=== PATIENT | female | born 1995 | race Caucasian/White ===

== ENCOUNTER 2022-11-10 08:41 | Outpatient (CLI) | payer BC, SELFPAY ==
--- NOTE | 2022-11-10 08:45 | CRLHL7_ITS ---
For Patients: As a result of the Cures Act, medical imaging exams and procedure reports are released immediately into your electronic medical record. You may view this report before your referring provider. If you have questions, please contact your health care provider. INDICATION: First trimester scan, establish dates. COMPARISON: None. TECHNIQUE: Real-time whatley-scale imaging of the pelvis was performed. FINDINGS: Sonographic imaging demonstrates a single living intrauterine gestation. The embryo demonstrates a regular cardiac rate measuring 166 beats per minute. The embryo`s crown-rump length measurement of 1.8 cm corresponds to a gestational age of 8 weeks 2 days with a sonographic due date of 06/20/2023. There is a normal-appearing yolk sac. There are no gross abnormalities noted within the embryo at this early state of development. The gestational sac has a normal appearance. There is a 1.4 x 1.1 x 1.1 cm perigestational hemorrhage. The amount of fluid within the sac appears appropriate for gestational age. The cervix is closed. The myometrium appears normal. The ovaries are of normal size. Corpus luteal cyst right ovary. There are no suspicious fluid collections noted in the cul-de-sac. IMPRESSION: Single living intrauterine with sonographic gestational age 8 weeks 2 days and sonographic due date 06/20/2023. Left-sided subchorionic hemorrhage measuring 1.4 x 1.1 x 1.1 cm. Dictated by Kemar Villegas MD @ 11/10/2022 9:51:42 AM (Electronically Signed)
== END 2022-11-10 08:42 | disposition home or self-care (01) ==
PROVIDERS: Visit Provider Advanced Practice Midwife
DX: Z34.91 Encounter for supervision of normal pregnancy, unspecified, first trimester (principal); O20.9 Hemorrhage in early pregnancy, unspecified; Z3A.08 8 weeks gestation of pregnancy
CPT/HCPCS: 0353U; 76817; 86703; 86803; 86850; 86900; 86901; 87340; 87491; 87591

== ENCOUNTER 2022-11-10 10:49 | Outpatient (CLI) | payer BC, SELFPAY ==
[2022-11-10 19:10] LABS: Chlamydia DNA Amplified* NOT DETECTED (No Detected); GC DNA Amplified* NOT DETECTED (No Detected)
== END 2022-11-10 10:50 | disposition home or self-care (01) ==
PROVIDERS: Visit Provider Advanced Practice Midwife
DX: Z34.81 Encounter for supervision of other normal pregnancy, first trimester (principal); Z3A.08 8 weeks gestation of pregnancy
CPT/HCPCS: 0353U; 86592; 86703; 86762; 86787; 86803; 86850; 86900; 86901; 87086; 87340

== ENCOUNTER 2023-02-02 08:07 | Outpatient (CLI) | payer BC, SELFPAY ==
--- NOTE | 2023-02-02 08:15 | CRLHL7_ITS ---
For Patients: As a result of the Century Cures Act, medical imaging exams and procedure reports are released immediately into your electronic medical record. You may view this report before your referring provider. If you have questions, please contact your health care provider. INDICATION: Evaluate anatomy. COMPARISON: 11/10/2022 TECHNIQUE: Real time whatley scale imaging of the fetus was performed as well as color Doppler analysis of the umbilical vessels. FINDINGS: Sonographic imaging demonstrates a single living intrauterine gestation. Fetus demonstrates a regular cardiac rate of 159 beats per minute. Fetus has a breech position. The placenta lies posterior without evidence of placenta previa. The edge of the placenta is located 7.5 cm from the internal cervical os. Amniotic fluid volume appears normal. Single deepest vertical pocket: 5.4 cm. The cervix is closed and measures 4.3 cm in length. The composite ultrasound gestational age is calculated at 20 weeks 1 day with an estimated sonographic due date of 06/21/2023. The estimated weight is 365 grams which lies at the 72nd %. The following biometric measurements were obtained: Biparietal diameter: 4.4 cm/19 weeks 3 days 21st% Head circumference: 17.3 cm/19 weeks 6 days 27th% Abdominal circumference: 16.4 cm/21 weeks 3 days 83rd% Femur length: 3.2 cm/19 weeks 6 days 35th% The HC/AC ratio measures: 1.05 range (1.07-1.25) On anatomic survey, there is a normal appearance of the cerebral ventricles, cavum septi pellucidi, cisterna magna and cerebellum. The nose, lips, and facial profile appear normal. The cervical, thoracic and lumbar spine are well visualized and appear normal. There is a normal four-chamber heart view and the left and right ventricular outflow tracts appear normal. The diaphragm and stomach appear normal. The bladder is normal. Bilateral pelviectasis measuring 4.3 millimeters the left and 4.5 millimeters on the right. There is a normal three-vessel cord and cord insertion site. The four extremities appear normal. IMPRESSION: Concordance of clinical and sonographic dating. Mild bilateral renal pelviectasis measuring just over 4 millimeters bilaterally. Follow-up in the 3rd trimester recommended. Remainder of the anatomic survey normal. Dictated by Kemar Villegas MD @ 02/02/2023 10:11:14 AM (Electronically Signed)
== END 2023-02-02 08:08 | disposition home or self-care (01) ==
LOC: US 08:07
PROVIDERS: Visit Provider Advanced Practice Midwife
DX: Z34.92 Encounter for supervision of normal pregnancy, unspecified, second trimester (principal); Z3A.20 20 weeks gestation of pregnancy
CPT/HCPCS: 76805

== ENCOUNTER 2023-03-31 09:35 | Outpatient (CLI) | payer BC, SELFPAY | END 2023-03-31 09:36 | disposition home or self-care (01) | LOC: NFLDREF 09:36 | PROVIDERS: Visit Provider Advanced Practice Midwife | DX: Z34.93 Encounter for supervision of normal pregnancy, unspecified, third trimester (principal); Z3A.30 30 weeks gestation of pregnancy | CPT/HCPCS: 86592; 86850; J2791 ==

== ENCOUNTER 2023-04-28 08:05 | Outpatient (CLI) | payer BC, SELFPAY ==
--- NOTE | 2023-04-28 08:15 | CRLHL7_ITS ---
For Patients: As a result of the Century Cures Act, medical imaging exams and procedure reports are released immediately into your electronic medical record. You may view this report before your referring provider. If you have questions, please contact your health care provider. INDICATION: HX IUGR, GROWTH, RE-EVALUATE KIDNEYS COMPARISON: 02/02/2023 TECHNIQUE: Real time whatley scale imaging of the fetus was performed. FINDINGS: Sonographic imaging demonstrates a single living intrauterine gestation. Fetus demonstrates a regular cardiac rate of 144 beats per minute. Fetus has a vertex position. The placenta lies posteriorly. Amniotic fluid volume appears normal and there is a single deepest vertical pocket: 5.9 cm. The estimated weight is 2237gm which lies at the 81st %. On the prior OB ultrasound exam dated 02/02/2023 the estimated weight was at the 72nd%. BPD 42nd percentile. HC 73rd percentile. AC greater than 97th percentile. FL 18th percentile. The HC/AC ratio measures 1.00 range (0.96-1.11). Right renal pelvis measures 3.8 millimeters. Left renal pelvis measures 4.9 millimeters. IMPRESSION: Sonographic gestational age 33 weeks 2 days and sonographic due date of 06/14/2023. Sonographic age 1 week ahead of the clinical age. Estimated weight 81st percentile. Abdominal circumference greater than 97th percentile. Mild bilateral renal pelviectasis considered within normal limits. Dictated by Kemar Villegas MD @ 04/28/2023 9:43:23 AM (Electronically Signed)
== END 2023-04-28 08:06 | disposition home or self-care (01) ==
LOC: US 08:05
PROVIDERS: Visit Provider Advanced Practice Midwife
DX: O36.63X0 Maternal care for excessive fetal growth, third trimester, not applicable or unspecified (principal); Z87.59 Personal history of other complications of pregnancy, childbirth and the puerperium; Z3A.33 33 weeks gestation of pregnancy
CPT/HCPCS: 76816

== ENCOUNTER 2023-05-25 08:37 | Outpatient (CLI) | payer BC, SELFPAY ==
[2023-05-27 12:29] LABS: Strep B DNA Probe Negative (Negative); Strep B Susceptibility Needed? No
== END 2023-05-25 08:38 | disposition home or self-care (01) ==
LOC: NFLDREF 08:38
PROVIDERS: Visit Provider Advanced Practice Midwife
DX: Z34.93 Encounter for supervision of normal pregnancy, unspecified, third trimester (principal)
CPT/HCPCS: 87081; 87653

== ENCOUNTER 2023-06-22 02:13 | Inpatient (IN) | payer BC, SELFPAY ==
[2023-06-22] VITALS (74 sets, daily range): BP systolic 97–169; BP diastolic 47–90; PULSE 67–126; RESP 16–18; TEMP 36.4–37.5; O2SAT 96–100; BMI 31.4
--- NOTE | 2023-06-22 02:18 | PC.NURSE ---
Center telephone call greater than 37 weeks Date of call: [06/22/23] Time of call: [0106] Name of person calling: [Hayley Collins] Best phone # to reach you at: [] patient: G: [2] P: [1] EDC: [06/21/23] Gestational age: [40.1] weeks Provider: [[facility]] Reason for calling (patient's words): [I'm wondering if I should come into the Center. My contractions are about 5 min apart and lasting maybe 1 min at a time. I felt some fluid leaking but my last baby they broke my water so I am not sure if this is what it's like when it breaks by itself. There hasn't been much fluid leaking now and no bloody show or anything.] If patient is calling with the following complaints, instructed to come to Center for evaluation: Feels like water broke: [Yes] Regular contractions that are 5 min apart: [Yes] Bleeding that is bright red and similar to a menstrual period: [No] Decreased movement: [No] Temp >100.4: [No] Patient has a sense that something doesn't feel right: [No] Is patient having contractions: [Yes] Reviewed Signs of Labor: Uterine tightening or cramping that occurs at regular intervals. These typically occur at shorter and shorter intervals and may increase in intensity with time. Unlike Payne-Collins contractions, changes in activity should not make these symptoms go away. With true labor, the time between contractions will gradually shorten and the intensity gradually increases. Typical recommendation is coming to the hospital when contractions occur every 5 minutes or less and last for 60 seconds or more for 1 hour. If patient chooses to stay home, patient given comfort instructions and informed if symptoms stay the same or are worse after 1 hour come to Center. Comfort measures: Lie on left side, reset, drink bottle or large cup of water, monitor contractions for 1 hour. Patient verbalized understanding?: [Yes] Is patient coming for evaluation?: [Yes] Telephone conversation guided by approved policy and flow chart, Telephone Calls From Patient's, approved at [place] perinatology Committee March 2023.
--- NOTE | 2023-06-22 02:27 | P.LDBA_ITS ---
Subjective History of Present Illness Date Seen: 06/22/23 Narrative: Hayley is being admitted to Labor and Delivery for grossly ruptured membranes with clear fluid. She is a 28 year old at 40.1 weeks gestation. Her contractions began around midnight and she noted SROM at 0100. On admission she is adeola regularly and requesting an epidural for pain. Her full history and physical was dictated by Dominick Montenegro CNM on 06/01/23. Please see this for details. Specific Issues/Plans Rh Negative Partner:Jorgemaryam H & P done 06/01/23 by Dominick Montenegro IOL scheduled 06/30 1. Hx of IUGR -growth u/s at 32 weeks - EFW 81%. 4 lb 15 oz 2. Dilated renal pelvises noted on anatomy scan Follow-up US in 3rd trimester: Rt 4mm, L 5mm, Under 7 mm WNL COVID: declines Flu: 04/28/23 Tdap: Given 04/12/23 32wk Mental Health: 04/28/2023 34wk Hgb: OB - Problem Based A/P Additional Plan (1) 40 weeks gestation of : Status: Acute (2) SROM (spontaneous rupture of membranes): Status: Acute (3) Pain during labor: Status: Acute Plan Assessment:?? at 40.1 weeks gestation?? GBS negative? Patient is coping well with challenges of labor.?? Labor type: Spontaneous, Active/Early labor? Category 2 FHR pattern.? 2 elevated BP's after epidural placement, resolved with readjustment of BP cuff. complicated by: Hx IUGR, Dilated renal pelvises noted on anatomy scan ? Plan:?? * ?Admit to L & D? * IV access: placed per protocol with epidural * Monitoring per policy: continuous with epidural? * Candidate for analgesia of choice.? Planning epidural for pain management * Expectant management at this time * Patient encouraged to reposition to promote physiologic labor and . * Close monitoring of BP's, PreE labs if another elevation of BP obtained. * Anticipate ? Delivery/Labor/Induction Plan Plan: expectant management OB Exam Physical Exam Vital signs: Pulse BP 104 H 137/90 H 06/22/23 02:17 06/22/23 02:17 Narrative: Vitals Reviewed Constitutional:? Alert and oriented x3 HEENT:? Normocephalic, atraumatic Neck:? Supple Lungs:? Clear to auscultation bilaterally Heart:? Regular rate and rhythm, no murmur, rub or gallop Abdomen:? Soft, nontender, and gravid. Vertex by John Paul's, confirmed with cervical exam. Extremities:? No edema or erythema Cervix: 5 cm/90%/-2 station/vertex NST: 135 bpm/moderate variability/+accelerations/variable decelerations/1-2 min contractions Detailed Labor and Delivery Exam Patient Gravid: Yes Dilation (cm): 5 Effacement (%): 90 Cervix position: mid Consistency: soft Contraction Frequency: 1-2 Contraction duration (sec): 60 Contraction intensity: Moderate Fetus (Single) Station: -2 Amniotic Membrane Status: SROM Amniotic Membrane Fluid Description: Clear Heart Rate Baseline: 135 Monitor Accelerations: Absent Monitor Decelerations: Variable Shelter Variability: Moderate (6-25)
[2023-06-22] MEDS: LACTATED RINGERS 1000 ML 1,000 ML 500 ML IV ×2 (02:38→04:18)
[2023-06-22 02:53] LABS: Basophils Absolute Auto 0.01 K/uL (0.00-0.30); Basophils Percent Auto 0.1 % (0.0-3.0); Eosinophils Absolute Auto 0.05 K/uL (0.00-0.50); Eosinophils Percent Auto 0.5 % (0.0-7.0); Hematocrit 41.8 % (33.0-51.0); Hemoglobin* 14.5 gm/dL (12.0-16.0); Immature Granulocytes Abs Auto 0.09 K/uL (0.00-0.30); Immature Granulocytes Pct Auto 0.9 %; Lymphocytes Absolute Auto 2.01 K/uL (0.90-2.90); Lymphocytes Percent Auto 20.1 % (20-44); Mean Corpuscular HGB Conc 35 gm/dL (32-36); Mean Corpuscular Hemoglobin 30 pg (26-34); Mean Corpuscular Volume 87 fL (80-100); Monocytes Percent Auto 8.9 % (0.0-11.0); Neutrophils Absolute Auto 6.94 K/uL (1.7-7.0); Neutrophils Percent Auto 69.5 % (42.0-72.0); Platelet Count* 205 K/uL (140-440); Red Blood Count 4.79 m/uL (4.00-5.20); White Blood Count* 9.99 K/uL (4.50-11.00)
[2023-06-22 03:08] LABS: Slide Review Reflex No
[2023-06-22] MEDS: LIDOCAINE 2% (PF) 5 ML VIAL EPIDURAL ×2 (03:19→04:44)
[2023-06-22] MEDS: ROPIVACAINE 0.2% 100 ml 100 ML 12 MG EPIDURAL (03:22)
--- NOTE | 2023-06-22 03:28 | P.ANBPRC_ITS ---
[facility] Medical History History of prior with IUGR ?Z87.59 - Personal history of other complications of , childbirth and the puerperium (ICD-10) Surgical History History of wisdom tooth extraction ?K08.409 - Partial loss of teeth, unspecified cause, unspecified class (ICD- 10) Vaginal delivery (01/28/21) ?O80 - Encounter for full-term uncomplicated delivery (ICD-10) Family History (Updated 11/10/22 @ 10:23 by Elba Montenegro CNM) Father Diabetes Paternal Grandfather Stroke Social History (Updated 06/01/23 @ 10:09 by Elba Montenegro CNM) Narrative: SOCIAL Education: bachelors 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 Safe at home with current partner Special Diet: Denies Ok with a blood transfusion: yes Culture or hinduism beliefs: denies RISK FACTORS Exercise Times/wk: daily, weight lifting, Kimo, walking. Depression/Anxiety: denies Previous Treatments NA Therapy NA TISH: 0 PHQ 9: 0 Seat Belt Use: Routinely Smoking: Denies present. Smoked 1-2 years, and a few months between the pregnancies. Few times a week. Alcohol/day: Prior to knowing she was Caffeine: 200 mg a day Drug Use: Denies past/present What is your current living situation?: I presently have a place to live Problems where you live: no known problems In the past 12 months, utilities in danger of being shut off: no In past 12 months, lack of transportation kept you from medical appts, meetings, work, or getting things needed for daily living: no In the past 12 mos, have been you worried that your food would run out before you had money to buy more?: never true In the past 12 mos, the food you bought just didn't last and you didn't have money to buy more?: never true Smoking Status: Former smoker How often does anyone, including family, friends and others, physically hurt you : never How often does anyone, including family, friends and others, insult or talk down to you: never How often does anyone, including family, friends and others, threaten you with harm: never How often does anyone, including family, friends and others, scream or curse at you: never Little interest or pleasure in doing things: not at all Feeling down, depressed, or hopeless: not at all Meds Home Medications and Allergies Home Medications Medication Instructions Recorded Confirmed Type prenat.vits,mikayla,rnh-pops-igpxw 1 tab PO QDAY 11/10/22 06/22/23 History cholecalciferol (vitamin D3) 50 50 mcg PO QDAY 01/04/23 06/22/23 History mcg (2,000 unit) capsule calcium carbonate 600 mg calcium 600 mg PO QDAY 03/02/23 06/22/23 History (1,500 mg) tablet (Calcium) magnesium 250 mg tablet 250 mg PO QDAY 06/08/23 06/22/23 History Allergies Allergy/AdvReac Type Severity Reaction Status Date / Time No Known Drug Allergies Allergy Verified 06/22/23 02:21 Results Labs Labs: Laboratory Results - last 24 hr 06/22/23 02:30 WBC 9.99 RBC 4.79 Hgb 14.5 Hct 41.8 MCV 87 MCH 30 MCHC 35 RDW Coeff of Juan C 12.0 Plt Count 205 Neut % (Auto) 69.5 Lymph % (Auto) 20.1 [place] % (Auto) 8.9 Eos % (Auto) 0.5 Baso % (Auto) 0.1 Neut # (Auto) 6.94 Lymph # (Auto) 2.01 [place] # (Auto) 0.90 Eos # (Auto) 0.05 Baso # (Auto) 0.01 Abs Immat Gran (auto) 0.09 Imm/Tot Granulo (auto) 0.9 Vital Signs Vital Signs: Last Vital Signs Temp 98.4 F 06/22/23 02:19 Pulse 86 06/22/23 03:27 Resp 18 06/22/23 02:19 BP 128/72 06/22/23 03:27 Pulse Ox 100 06/22/23 03:18 Weight: 85.502 kg Height: 165.1 cm Anesthesia Procedures Epidural Insertion Patient Location: OB Start Time: 02:57 Stop Time: 03:36 Start Date: 06/22/23 Stop Date: 06/22/23 Reason for Block: primary anesthetic Patient Position: sitting Performed By: Price Petty Preanesthetic Checklist: IV checked, risks and benefits discussed, surgical consent, monitors and equipment checked, pre-op evaluation, timeout performed and anesthesia consent Prep: chlorhexidine gluconate Monitoring: blood pressure monitoring, senior formulation scientist, continuous pulse oximetry and heart rate Approach: midline Vertebral Space: lumbar (1-5) Needle Type: Tuohy needle Injection Technique: continuous catheter (catheter) Needle gauge: 17 Needle Length (cm): 10 cm Needle Insertion Depth (cm): 5 Catheter Gauge: 19 Catheter Type: multi-orifice Catheter at skin depth (cm): 10 Test Dose Result: negative and lidocaine 1.5% with epinephrine 1 to 200,000
--- NOTE | 2023-06-22 04:28 | P.OBPN_ITS ---
Subjective Date Seen: 06/22/23 Narrative: ?Everton is coping well with labor pain/contractions. She continues to have pain with frequent contractions. Anesthesia has been called to bolus epidural. ?She would like to continue with epidural for comfort and pain management.? Objective Exam: VSS, afebrile General Appearance:? Calm, cooperative. ?No acute distress. ? Psychiatric Exam: Alert and oriented, appropriate affect Abdomen: Gravid Ctx: ?Q 1-2 min apart. ? ? ?Strong- FHTs: ?Baseline: 130. ? ? Variability: moderate. ?Accels: +. ? ?Decels: ?variables. SVE: 8/100/0 Membranes: ?SROM X 3.5 hours Vital Signs: Last Vital Signs Temp 98.7 F 06/22/23 03:24 Pulse 105 H 06/22/23 04:24 Resp 18 06/22/23 03:24 BP 118/64 06/22/23 04:24 Pulse Ox 99 06/22/23 04:26 Pelvic Exam Dilation (cm): 8 Effacement (%): 100 Contractions Monitor mode: External Contraction Frequency: 1-2 Contraction pattern: Regular Contraction intensity: Strong/Firm Assessment Assessment: active labor Station: -2 Status: Category ll Heart Rate Baseline: 130 Mcc Variability: Moderate (6-25) Monitor Accelerations: Absent Monitor Decelerations: Variable Plan Plan: Assessment:?? at 40.1 gestation?? GBS neg Patient is coping well with challenges of labor.?? Labor type: Spontaneous, Active labor? complicated by: Hx IUGR, Dilated renal pelvises noted on anatomy scan ? Labor complicated by: Frequent contractions Plan:?? * IV access: placed per protocol with epidural * Monitoring per policy: continuous with epidural? * Candidate for analgesia of choice.? Epidural placed for pain management * Expectant management at this time * Patient encouraged to reposition to promote physiologic labor and . * Close monitoring of BP's, PreE labs if another elevation of BP obtained. * Anticipate ? ?
[2023-06-22] MEDS: fentaNYL 100 MCG/2 ML inj 25 MCG INTRATHECA (05:04)
--- NOTE | 2023-06-22 05:10 | P.ANBPRC_ITS ---
[facility] Medical History History of prior with IUGR ?Z87.59 - Personal history of other complications of , childbirth and the puerperium (ICD-10) Surgical History History of wisdom tooth extraction ?K08.409 - Partial loss of teeth, unspecified cause, unspecified class (ICD- 10) Vaginal delivery (01/28/21) ?O80 - Encounter for full-term uncomplicated delivery (ICD-10) Family History (Updated 11/10/22 @ 10:23 by Elba Montenegro CNM) Father Diabetes Paternal Grandfather Stroke Social History (Updated 06/01/23 @ 10:09 by Elba Montenegro CNM) Narrative: SOCIAL Education: bachelors 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 Owns [employer] company Lives with: Alice Purvis (daughter) Pets: denies Abuse: Denies past. Safe at home with current partner Special Diet: Denies Ok with a blood transfusion: yes Culture or amish beliefs: denies RISK FACTORS Exercise Times/wk: daily, weight lifting, Kimo, walking. Depression/Anxiety: denies Previous Treatments NA Therapy NA TISH: 0 PHQ 9: 0 Seat Belt Use: Routinely Smoking: Denies present. Smoked 1-2 years, and a few months between the pregnancies. Few times a week. Alcohol/day: Prior to knowing she was Caffeine: 200 mg a day Drug Use: Denies past/present What is your current living situation?: I presently have a place to live Problems where you live: no known problems In the past 12 months, utilities in danger of being shut off: no In past 12 months, lack of transportation kept you from medical appts, meetings, work, or getting things needed for daily living: no In the past 12 mos, have been you worried that your food would run out before you had money to buy more?: never true In the past 12 mos, the food you bought just didn't last and you didn't have money to buy more?: never true Smoking Status: Former smoker How often does anyone, including family, friends and others, physically hurt you : never How often does anyone, including family, friends and others, insult or talk down to you: never How often does anyone, including family, friends and others, threaten you with harm: never How often does anyone, including family, friends and others, scream or curse at you: never Little interest or pleasure in doing things: not at all Feeling down, depressed, or hopeless: not at all Meds Home Medications and Allergies Home Medications Medication Instructions Recorded Confirmed Type prenat.vits,mikayla,rcu-gudh-gglmp 1 tab PO QDAY 11/10/22 06/22/23 History cholecalciferol (vitamin D3) 50 50 mcg PO QDAY 01/04/23 06/22/23 History mcg (2,000 unit) capsule calcium carbonate 600 mg calcium 600 mg PO QDAY 03/02/23 06/22/23 History (1,500 mg) tablet (Calcium) magnesium 250 mg tablet 250 mg PO QDAY 06/08/23 06/22/23 History Allergies Allergy/AdvReac Type Severity Reaction Status Date / Time No Known Drug Allergies Allergy Verified 06/22/23 02:21 Results Labs Labs: Laboratory Results - last 24 hr 06/22/23 02:30 WBC 9.99 RBC 4.79 Hgb 14.5 Hct 41.8 MCV 87 MCH 30 MCHC 35 RDW Coeff of Juan C 12.0 Plt Count 205 Neut % (Auto) 69.5 Lymph % (Auto) 20.1 [place] % (Auto) 8.9 Eos % (Auto) 0.5 Baso % (Auto) 0.1 Neut # (Auto) 6.94 Lymph # (Auto) 2.01 [place] # (Auto) 0.90 Eos # (Auto) 0.05 Baso # (Auto) 0.01 Abs Immat Gran (auto) 0.09 Imm/Tot Granulo (auto) 0.9 Blood Type O Negative Antibody Screen NEGATIVE Vital Signs Vital Signs: Last Vital Signs Temp 98.7 F 06/22/23 03:24 Pulse 67 06/22/23 05:09 Resp 18 06/22/23 03:24 BP 97/47 L 06/22/23 05:09 Pulse Ox 97 06/22/23 05:02 Weight: 85.502 kg Height: 165.1 cm Anesthesia Procedures Intrathecal Patient Location: OB Start Time: 04:55 Stop Time: 05:15 Start Date: 06/22/23 Stop Date: 06/22/23 Reason for Block: procedure for pain Patient Position: sitting Performed By: Price Petty Preanesthetic Checklist: IV checked, risks and benefits discussed, monitors and equipment checked, timeout performed and anesthesia consent Prep: patient draped Monitoring: blood pressure monitoring, continuous pulse oximetry and heart rate Approach: midline Vertebral Space: lumbar (1-5) Needle Type: Ady Injection Technique: single-shot Needle gauge: 25 Needle Length (cm): 10 cm
[2023-06-22] MEDS: miSOPROStoL 800 MCG/4 TABLET PR (05:49)
--- NOTE | 2023-06-22 06:20 | W.PM.VAGDE_ITS ---
OB Procedure Vag Delivery Mother Details Mother Details: The patient is a 28 year-old, 2, Para 1, admitted on 06/22/23 at 40.1 Days gestation for SROM of clear fluid at 0000. : 2 Para: 2 Weeks Gestation: 40.1 Admission Date: 06/22/23 Additional Details Amniotic Membrane Status: SROM Amniotic Membrane Rupture Date: 06/22/23 Amniotic Membrane Rupture Time: 00:00 Amniotic Membrane Fluid Description: Clear Analgesia/Anesthesia Type: Epidural and Intrathecal Waterbirth: No Pitcoin: Yes (for AMTSL) Intrapartal Events: None Labor Onset: 00:00 Complete: 05:11 Pushin:15 Heart: heart tones during second stage were Catergory II, FHR 150's with va riablesto 80-90's, moderate variability between contractions. Delivery Details Delivery Date: 06/22/23 Delivery Time: 05:37 Route of delivery: Infant Gender: Male Infant Viability: Alive; Heart Rate Present Position at Delivery: OA Delivery Details: 28?y.o?at 40.1 weeks.? Hayley has SROM for clear fluid at 0000 shortly after began to contract and arrived with painful frequent contractions at 5cm/100/-1. She requested an epidural which was placed but she did not receive relief with her contractions. Anesthesia then administered an intrathecal with good results. Pt complained of pressure and was found to be complete and +2. ? She became complete at 0511.??She pushed in right tilt and semi fowlers positions effectively, with closed knees pushing baby then crowned. .? Spontaneous vaginal delivery at 0537 of?a viable?male infant.??Delivered in vertex OA position.??Shoulders delivered easily, there was a hand by the face and a nuchal cord delivered through.? Spontaneous cry noted.?? placed on maternal abdomen.??Cord?was clamped and cut after a 5+ minute delay.??Nose and mouth were bulb suctioned.? Shoulder dystocia: no? Nuchal cord: yes times one? Meconium stained?fluid: terminal mec? Water : no? ? ? 6 at 1 minute and 8 at 5 minutes.? ? Placenta delivered spontaneously and?complete?at 0545 with a?3 vessel?cord.?? Bleeding controlled with fundal massage and?pitocin?for AMTSL.?She had some brisk bleeding after delivery and rectal Cytotec was given. ? Mother and infant were stable after delivery.? ? Lacerations:? 2nd degree vaginal tear, repaired with 3-0?vicryl.??Perimeum intact ? Bleeding?post delivery?was: moderate . ?The fundus was firm to palpation.? Blood loss: 700?mL.? Blood loss measurement type: QBL? ? ? Sponge,?lap?and needles counts are correct.? Mother and were stable after delivery.? 1 Minute Interval Total Score: 6 5 Minute Interval Total Score: 8 Additional Details Shoulder Dystocia: No Placenta Delivery Time: 05:45 Placental Delivery Description: Spontaneous Delivery repair: Vicryl Procedure Done: Global Blood Loss: 700 Laceration: Vaginal - 2nd Degree Blood Loss Measurement Type: QBL Bakri Used: No Sponge/Need Count Correct: Yes Cord Vessel Description: 3 Vessels, Nuchal Cord and Delivered through Event Summary Status: Mother and infant were stable after delivery. Disposition: floor
[2023-06-22] MEDS: LABETALOL HCL 5 MG/ML inj IVP (06:52)
--- NOTE | 2023-06-22 07:05 | PM.OBPNL ---
Subjective Date Seen: 06/22/23 Narrative: After delivery Hayley had treatable blood pressures of 165/58 and 165/67 requiring treatment. PreE labs ordered and Dr Mahoney notified. Magnesium IV will be started per protocol. Objective Vital Signs: Last Vital Signs Temp 98.9 F 06/22/23 05:47 Pulse 106 H 06/22/23 06:56 Resp 16 06/22/23 06:01 BP 106/70 06/22/23 06:56 Pulse Ox 97 06/22/23 05:17 Pelvic Exam Dilation (cm): 8 Effacement (%): 100 Contractions Monitor mode: External Contraction pattern: Regular Contraction intensity: Strong/Firm Assessment Station: -2 Amniotic Membrane Status: SROM Status: Category ll Heart Rate Baseline: 130 Monitor Accelerations: Absent Monitor Decelerations: Variable Plan Plan: Assumed care by Dr. Mahoney who will be handing off care to Dr Causey.
[2023-06-22] MEDS: MAGNESIUM IV 4 GM/100 ML PIGGYBACK IVPB (07:16)
[2023-06-22 07:30] LABS: Hematocrit 37.8 % (33.0-51.0); Hemoglobin* 12.9 gm/dL (12.0-16.0); Mean Corpuscular HGB Conc 34 gm/dL (32-36); Mean Corpuscular Hemoglobin 30 pg (26-34); Mean Corpuscular Volume 89 fL (80-100); Platelet Count* 189 K/uL (140-440); Red Blood Count 4.25 m/uL (4.00-5.20)
[2023-06-22 07:31] LABS: Slide Review Reflex No
[2023-06-22 07:48] LABS: Alanine Aminotransferase* 17 U/L (4-35); Aspartate Amino Transferase* 26 U/L (12-35); Blood Urea Nitrogen* 19 mg/dL (5-24); Est. Creatinine Clearance* 75.37; Estimated Glomerular Filt Rate 79 ml/min
--- NOTE | 2023-06-22 09:18 | PM.OBCN1 ---
OB - CN: HPI Date of Consult Time Seen by Provider: 09:18 Date Seen: 06/22/23 Patient: [facility] Patient (CNM group patient) Consult date: 06/22/23 Requesting Physician: Wm Gan CNM Primary Care Provider: Not a Local Provider Consult Narrative Reason for consult: other (Severely elevated blood pressures.) Narrative: The patient is a 28 year old G 2P 2001 that was admitted to the [facility] on 06/22/23 in labor for delivery at 40 1/7 weeks. Patient had a spontaneous vaginal delivery uncomplicated. After delivery patient with severely elevated blood pressures repeatedly. Treated with 1 dose of IV labetalol. Diagnosed with severe hypertension and recommendation was given by my partner Dr. Mahoney to start Magnesium Sulfate infusion for seizure prophylaxis. Patient today states to be doing well, patient denies any recent history of headaches, visual changes or pain in her upper abdomen. Currently feels okay a little bit groggy with magnesium sulfate infusion. History of Present Dating criteria: based on LMP care: good care History History 2 Elective abortions 0 Para 1 Spontaneous abortions 0 Hx # Term Pregnancies 1 Ectopic pregnancies Hx # Pregnancies 0 Multiple births 0 Number of Living Children 1 Past Pregnancies Del. Date GA/Weeks Outcome Route wt Inf Gender Labor Lgth Anesthesia Location Provider Compli 01/30/21 38 live - full term 2.892 kg Female 36+ hours epidural Delivery Date: 01/30/21 Last Updated by: Elba Montenegro CNM IOL for IUGR. Labs GBS status: negative OB Labs: Lab Assessment Start: 06/22/23 02:34 Freq: ONCE Status: Complete Protocol: PC.OBGBS Activity Type Activity Date Activity User E-sign Co-sign Detail Recorded Client Recorded Date Recorded By Document 06/22/23 02:45 TYRON [id number] 06/22/23 02:45 TYRON 06/22/23 02:45 Lab Assessment GBS Status negative GBS Additional Criteria None Is Patient Allergic to Penicillin? No No Treatment Needed OK Are Labs Available Yes Maternal Blood Type O Maternal RH Factor Negative Evaluate Maternal Rubella Immune Status Immune Hepatitis B Surface Antigen Negative Maternal HIV Status Negative Maternal Syphillis (RPR) Status Negative PFSH PFSH Medical History History of prior with IUGR ?Z87.59 - Personal history of other complications of , childbirth and the puerperium (ICD-10) Surgical History History of wisdom tooth extraction ?K08.409 - Partial loss of teeth, unspecified cause, unspecified class (ICD-10) Vaginal delivery (01/28/21) ?O80 - Encounter for full-term uncomplicated delivery (ICD-10) Family History Father Diabetes Paternal Grandfather Stroke Social History Narrative: SOCIAL Education: bachelors 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 Owns [employer] company Lives with: Alice Purvis (daughter) Pets: denies Abuse: Denies past. Safe at home with current partner Special Diet: Denies Ok with a blood transfusion: yes Culture or religion beliefs: denies RISK FACTORS Exercise Times/wk: daily, weight lifting, Kimo, walking. Depression/Anxiety: denies Previous Treatments NA Therapy NA TISH: 0 PHQ 9: 0 Seat Belt Use: Routinely Smoking: Denies present. Smoked 1-2 years, and a few months between the pregnancies. Few times a week. Alcohol/day: Prior to knowing she was Caffeine: 200 mg a day Drug Use: Denies past/present What is your current living situation?: I presently have a place to live Problems where you live: no known problems In the past 12 months, utilities in danger of being shut off: no In past 12 months, lack of transportation kept you from medical appts, meetings, work, or getting things needed for daily living: no In the past 12 mos, have been you worried that your food would run out before you had money to buy more?: never true In the past 12 mos, the food you bought just didn't last and you didn't have money to buy more?: never true Smoking Status: Former smoker How often does anyone, including family, friends and others, physically hurt you: never How often does anyone, including family, friends and others, insult or talk down to you: never How often does anyone, including family, friends and others, threaten you with harm: never How often does anyone, including family, friends and others, scream or curse at you: never Little interest or pleasure in doing things: not at all Feeling down, depressed, or hopeless: not at all Meds Home Medications and Allergies Home Medications Medication Instructions Recorded Confirmed Type prenat.vits,mikayla,ajq-jegk-dugru 1 tab PO QDAY 11/10/22 06/22/23 History cholecalciferol (vitamin D3) 50 50 mcg PO QDAY 01/04/23 06/22/23 History mcg (2,000 unit) capsule calcium carbonate 600 mg calcium 600 mg PO QDAY 03/02/23 06/22/23 History (1,500 mg) tablet (Calcium) magnesium 250 mg tablet 250 mg PO QDAY 06/08/23 06/22/23 History Allergies Allergy/AdvReac Type Severity Reaction Status Date / Time No Known Drug Allergies Allergy Verified 06/22/23 02:21 OB - H&P: Exam Physical Exam: Vital signs: Temp Pulse Resp BP Pulse Ox 98.4 F 115 H 18 116/63 97 06/22/23 07:05 06/22/23 08:55 06/22/23 07:15 06/22/23 08:55 06/22/23 05:17 Narrative: VITAL SIGNS: As noted above. GENERAL APPEARANCE: Alert, cooperative female in no acute distress. MOOD & AFFECT: Normal. HEART: Regular rate and rhythm without murmurs. LUNGS: Lungs are clear to auscultation bilaterally. No crackles, wheezes, or rhonchi. ABDOMEN: Soft, non-distended and appropriately tender, well contracted uterus. : Normal lochia. enderness. EXTREMITIES: Bilateral trace edema. Well perfused. Nontender. NEURO: Intact. OB - Results Labs Labs: Short CBC 06/22/23 06/22/23 Range/Units 02:30 07:24 WBC 9.99 16.00 H (4.50-11.00) K/uL Hgb 14.5 12.9 (12.0-16.0) gm/dL Hct 41.8 37.8 (33.0-51.0) % Plt Count 205 189 (140-440) K/uL BMP 06/22/23 07:24 BUN 19 Creatinine 1.0 Liver Function 06/22/23 Range/Units 07:24 AST 26 (12-35) U/L ALT 17 (4-35) U/L OB - CN: A/P Assessment and Plan (1) Gestational hypertension: Problem details: Severe, Status: Acute Assessment and Plan: Continue magnesium sulfate infusion for 24 hours, continue preeclampsia labs every 6 hours. Close monitoring of I/O, creatinine 1.0 (need to keep close attention to output, magnesium levels, toxicity symptoms). 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 (2) Spontaneous vaginal delivery: Status: Acute Plan Continue routine pp care.
[2023-06-22] MEDS: LACTATED RINGERS 1000 ML 1,000 ML 75 ML IV (09:50)
[2023-06-22] MEDS: DOCUSATE SODIUM 100 MG CAPSULE PO (09:58)
[2023-06-22] MEDS: IBUPROFEN 600 MG TABLET PO ×2 (11:01→18:24)
[2023-06-22 14:16] LABS: Hematocrit 38.6 % (33.0-51.0); Hemoglobin* 13.1 gm/dL (12.0-16.0); Mean Corpuscular HGB Conc 34 gm/dL (32-36); Mean Corpuscular Hemoglobin 30 pg (26-34); Mean Corpuscular Volume 89 fL (80-100); Platelet Count* 200 K/uL (140-440); Red Blood Count 4.36 m/uL (4.00-5.20); White Blood Count* 13.81 K/uL (4.50-11.00)
[2023-06-22 14:18] LABS: Slide Review Reflex No
[2023-06-22 14:33] LABS: Alanine Aminotransferase* 17 U/L (4-35); Aspartate Amino Transferase* 37 U/L (12-35); Blood Urea Nitrogen* 15 mg/dL (5-24); Creatinine* 0.9 mg/dL (0.5-1.5); Est. Creatinine Clearance* 83.74; Estimated Glomerular Filt Rate 89 ml/min
[2023-06-22] MEDS: SODIUM CHLORIDE 0.9 % (FLUSH) 10 ML SYRINGE IVF (16:17)
[2023-06-22 19:09] LABS: Hematocrit 37.8 % (33.0-51.0); Hemoglobin* 12.8 gm/dL (12.0-16.0); Mean Corpuscular HGB Conc 34 gm/dL (32-36); Mean Corpuscular Hemoglobin 30 pg (26-34); Mean Corpuscular Volume 89 fL (80-100); Platelet Count* 196 K/uL (140-440); Red Blood Count 4.25 m/uL (4.00-5.20); White Blood Count* 11.27 K/uL (4.50-11.00)
[2023-06-22 19:14] LABS: Slide Review Reflex No
[2023-06-22 19:40] LABS: Creatinine* 0.8 mg/dL (0.5-1.5); Est. Creatinine Clearance* 94.21; Estimated Glomerular Filt Rate 103 ml/min
[2023-06-22 19:41] LABS: Alanine Aminotransferase* 19 U/L (4-35); Aspartate Amino Transferase* 42 U/L (12-35); Blood Urea Nitrogen* 14 mg/dL (5-24)
[2023-06-22 19:49] LABS: Magnesium* 6.2 mg/dL (1.5-2.6)
[2023-06-22] MEDS: ACETAMINOPHEN 500 MG TABLET 1000 MG PO (23:39)
[2023-06-23 01:17] LABS: Hematocrit 34.8 % (33.0-51.0); Hemoglobin* 11.8 gm/dL (12.0-16.0); Mean Corpuscular HGB Conc 34 gm/dL (32-36); Mean Corpuscular Hemoglobin 30 pg (26-34); Mean Corpuscular Volume 89 fL (80-100); Platelet Count* 180 K/uL (140-440); White Blood Count* 10.18 K/uL (4.50-11.00)
[2023-06-23 01:20] LABS: Slide Review Reflex No
[2023-06-23 01:32] LABS: Alanine Aminotransferase* 18 U/L (4-35); Aspartate Amino Transferase* 37 U/L (12-35); Blood Urea Nitrogen* 16 mg/dL (5-24); Creatinine* 0.8 mg/dL (0.5-1.5); Est. Creatinine Clearance* 94.21; Estimated Glomerular Filt Rate 103 ml/min
[2023-06-23 01:39] LABS: Magnesium* 6.7 mg/dL (1.5-2.6)
[2023-06-23 04:42] VITALS: BP 106/85; PULSE 82; RESP 18; TEMP 36.6; O2SAT 99
[2023-06-23] MEDS: IBUPROFEN 600 MG TABLET PO ×3 (08:07→21:33)
[2023-06-23] MEDS: DOCUSATE SODIUM 100 MG CAPSULE PO (08:07)
[2023-06-23 08:14] VITALS: BP 110/74; PULSE 84; RESP 16; TEMP 36.4; O2SAT 97
--- NOTE | 2023-06-23 08:37 | P.OBPN_ITS ---
OB - PN:Subj Subjective Time Seen by Provider: 08:37 Date Seen: 06/23/23 Narrative: Hayley is a 28 y.o. who was admitted to [facility] for delivery. ?She had an uncomplicated spontaneous vaginal delivery.? Patient was diagnosed with severe gestational hypertension after delivery. Patient has now completed 24 hours of magnesium sulfate infusion for seizure prophylaxis. The patient feels well. ?The pain is well controlled with current medications. ?She has no new complaints. ?She is and reports things are going well.? the patient has done well.? Vitals have been stable.? She has remained afebrile.? Has a good appetite, is tolerating a general diet. ?She is voiding without difficulty.? She is passing gas and has not had a bowel movement.? She is ambulating and denies any dizziness.? Has small amount of rubra lochia. 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 OB - PN: Obj Exam Physical Exam: Vital signs: Temp Pulse Resp BP Pulse Ox O2 Del Method 97.5 F L 84 16 110/74 97 Room Air 06/23/23 08:14 06/23/23 08:14 06/23/23 08:14 06/23/23 08:14 06/23/23 08:14 06/23/23 08:14 Narrative: VITAL SIGNS: As noted above. GENERAL APPEARANCE: Alert, cooperative female in no acute distress. MOOD & AFFECT: Normal. HEART: Regular rate and rhythm without murmurs. LUNGS: Lungs are clear to auscultation bilaterally. No crackles, wheezes, or rhonchi. ABDOMEN: Soft, non-distended and appropriately tender, well contracted uterus . : Normal lochia. EXTREMITIES: Nonedematous. Well perfused. Nontender. NEURO: Intact. OB - PN: Obj Data Labs Labs: Laboratory Results - last 24 hr 06/22/23 06/22/23 06/23/23 13:49 18:56 01:10 WBC 13.81 H 11.27 H 10.18 RBC 4.36 4.25 3.90 L Hgb 13.1 12.8 11.8 L Hct 38.6 37.8 34.8 MCV 89 89 89 MCH 30 30 30 MCHC 34 34 34 Plt Count 200 196 180 BUN 15 14 16 Creatinine 0.9 0.8 0.8 Estimated Creat Clear 83.74 94.21 94.21 Estimated GFR 89 103 103 Magnesium 6.0 H* 6.2 H* 6.7 H* AST 37 H 42 H 37 H ALT 17 19 18 OB - PN: A/P Delivery Assessment and Plan (1) Gestational hypertension: Problem details: Severe, Status: Acute Assessment and Plan: Transaminitis trending downward. Pending 7:00 a.m. labs. If there is no new severely elevated blood pressures, or ROLLER MILL TENDER irritability symptoms throughout the day I would not repeat labs. Will continue to monitor vital signs for at least 24 hours after magnesium sulfate discontinuation. Will treat mildly elevated blood pressures with oral antihypertensives if needed. (2) Spontaneous vaginal delivery: Status: Acute Plan day: 1 Plan: routine care
[2023-06-23 08:41] LABS: Creatinine* 0.8 mg/dL (0.5-1.5); Est. Creatinine Clearance* 94.21; Estimated Glomerular Filt Rate 103 ml/min
[2023-06-23 08:42] LABS: Alanine Aminotransferase* 21 U/L (4-35); Aspartate Amino Transferase* 36 U/L (12-35); Blood Urea Nitrogen* 13 mg/dL (5-24)
[2023-06-23 08:46] LABS: Hemoglobin* 13.1 gm/dL (12.0-16.0); Magnesium* 6.2 mg/dL (1.5-2.6); Mean Corpuscular HGB Conc 34 gm/dL (32-36); Mean Corpuscular Hemoglobin 30 pg (26-34); Mean Corpuscular Volume 89 fL (80-100); Platelet Count* 204 K/uL (140-440); Red Blood Count 4.36 m/uL (4.00-5.20); White Blood Count* 9.84 K/uL (4.50-11.00)
[2023-06-23 08:58] LABS: Slide Review Reflex No
[2023-06-23 12:17] VITALS: BP 131/79; PULSE 104; RESP 18; TEMP 36.7; O2SAT 97
[2023-06-23 16:50] VITALS: BP 123/65; PULSE 100; RESP 18; TEMP 36.6; O2SAT 95
[2023-06-23 19:35] VITALS: BP 127/78; PULSE 96; RESP 16; TEMP 36.6; O2SAT 97
[2023-06-23] MEDS: BENZOCAINE/MENTHOL 1 EACH LOZENGE MUCOUS MEM (21:32)
[2023-06-23 21:42] VITALS: BP 125/79; PULSE 104; RESP 16; TEMP 36.7; O2SAT 97
[2023-06-24] MEDS: BENZOCAINE/MENTHOL 1 EACH LOZENGE MUCOUS MEM ×3 (00:19→05:52)
[2023-06-24 02:54] VITALS: BP 121/75; PULSE 80; RESP 16; TEMP 36.7; O2SAT 97
[2023-06-24] MEDS: IBUPROFEN 600 MG TABLET PO (03:06)
[2023-06-24 05:27] VITALS: BP 119/80; PULSE 87; RESP 16; TEMP 36.6; O2SAT 95
[2023-06-24] MEDS: DOCUSATE SODIUM 100 MG CAPSULE PO (08:46)
[2023-06-24 09:26] VITALS: BP 116/74; PULSE 93; RESP 15; TEMP 36.7; O2SAT 96
--- NOTE | 2023-06-24 09:41 | PM.OBDSVD1 ---
DS: Providers Provider Date Seen: 06/24/23 Date of admission: 06/22/23 02:13 Primary care physician: Not a Local Provider Admitting Clinician: Wm Gan CNM Consults: 06/22/23 07:03 Consult to Physician [CONS] Routine Comment: Consulting Provider: Nida Mahoney Has provider been notified: Yes Attending Physician on discharge: Wm Gan CNM Date of Discharge: 06/24/23 DS: Diagnosis Discharge Diagnosis (1) Lactating mother: Status: Acute (2) care following vaginal delivery: Status: Acute (3) Gestational hypertension: Status: Acute Problem details: Severe, Exam Narrative: Exam Narrative: GENERAL APPEARANCE:? normal affect, alert, no distress? MOOD:? appropriate? CHEST:? clear to auscultation and percussion? HEART:? regular rate and rhythm? ABDOMEN:? soft, non-tender the uterine fundus is 2 cm Below Umbilicus, Midline and is appropriate for the stage of recovery. ? PERINEUM:? mild edema of the perineum, there is a 2nd degree that is healing well.? EXTREMITIES:? normal and no edema? Patient has no complaints? No active bleeding?? Doing well? She is requesting discharge home. Const: Vital Signs, click to edit/add: Vital Signs - 24 hr 06/23/23 12:17 06/23/23 16:50 06/23/23 19:35 Temperature 98.0 F 97.9 F 98 F Pulse Rate [Pulse Oximeter] 104 H 100 96 Respiratory Rate 18 18 16 Blood Pressure [Ri ght Arm] 131/79 123/65 127/78 Pulse Oximetry 97 95 97 Oxygen Delivery Me thod Room Air Room Air Room Air 06/23/23 21:42 06/24/23 02:54 06/24/23 05:27 Temperature 98.1 F 98.1 F 98 F Pulse Rate [Pulse Oximeter] 104 H 80 87 Respiratory Rate 16 16 16 Blood Pressure [Ri ght Arm] 125/79 121/75 119/80 Pulse Oximetry 97 97 95 Oxygen Delivery Me thod Room Air Room Air Room Air 06/24/23 09:26 Temperature 98.1 F Pulse Rate [Pulse Oximeter] 93 Respiratory Rate 15 Blood Pressure [Ri ght Arm] 116/74 Pulse Oximetry 96 Oxygen Delivery Me thod Room Air Documenting provider has reviewed patient's vital signs: yes OB - DS: Summary Hospital Course Hospital Course: The patient is a 28 year old G 2 P 2 at 40.1 weeks gestation that was admitted to the Center on 06/22/23 for SROM. She had an uncomplicated vaginal delivery. She delivered a viable male . She is breast feeding and it is going well. she is using a shield on her right side due to an inverted nipple. the patient has done well. Her blood pressures have been stable since off magnesium. reviewed warning signs of high blood pressure and when to be seen. She is planing mini pill for control. Peripartum Data Infant delivery method: Vaginal Laceration description: Vaginal - 2nd Degree Episiotomy description: None complications: none [place] Gender: Male Infant Discharge Plan: Home Status at Discharge Functional status at discharge: independent ambulation Overall status at discharge: patient is progressing back to baseline Time Spent with Patient Time attestation: Total time spent providing and/or coordinating discharge services: Discharge Plan Discharge Disposition: Home, Self-Care Date of Admission: 06/22/23 02:13 Attending Provider on Discharge: Annamaria Lu Consulting Providers: Nida Mahoney Primary Care Provider: Provider,Not a Local Condition: Stable Anticipated Discharge Date/Time: 06/24/23 11:00 Discharge Medications: New docusate sodium 100 mg Capsule 100 mg PO DAILY Qty: 60 0RF Rx Instructions: Take 1-2 tablets daily as needed for constipation. ibuprofen 600 mg Tablet 600 mg PO Q6H PRNQty: 30 0RF Continued cholecalciferol (vitamin D3) 50 mcg (2,000 unit) capsule 50 mcg PO QDAY calcium carbonate [Calcium 600] 600 mg calcium (1,500 mg) tablet 600 mg PO QDAY prenat.vits,mikayla,zjx-gnel-viwfy Tablet 1 tab PO QDAY magnesium 250 mg tablet 250 mg PO QDAY Discharge Orders: Discharge Order (Routine); Ordered 06/24/23 Ordered By: Annamaria Lu Patient Education: OB Vaginal/Breast Feeding Additional Instructions: Discharge instructions were reviewed with the patient including signs and symptoms of infection and home going medications.? Lifting Restrictions: 20 pounds for 6? weeks? ?? Do not drive while taking narcotic pain meds.? Off Work or School for 6 weeks.? ?? Symptoms to report to doctor:? -Bleeding that saturates more than one pad per hour? -Passing clots larger than the size of a golf ball? -Pain not relieved by prescribed medication? -Fever above 100.4 degrees Fahrenheit? -A foul vaginal odor? -Difficulty in emotions, mood and functions? -Thoughts of hurting yourself and/or ? -Painful, reddened area in your breast? -Any drainage, redness or tenderness in your IV/epidural site? -Severe headache that doesn't improve after taking medications? -Changes in vision, including temporary loss of vision, blurred vision, and/or light sensitivity? -Upper abdominal pain (usually under ribs on the right side)? -Decrease in urination or painful, frequent urinating? -Chest pain? -Shortness of breath? -Tenderness or pain with redness and/swelling in the calf(s) of your leg? ?? Follow up visits:?? 1. 2-day nurse visit:?blood pressure check.? 2. 2-week visit: discuss infant feeding/care concerns, review control options and screen for anxiety/depression.? 3. 6-week visit for an annual exam.? ?? consultation services are available to all mothers and babies for the first year after delivery.? To make an appointment, please call [phone].? Activity Level: Activity as Tolerated Discharge Diet: Regular Follow Up Appointments: Provider,Not a Local [Primary Care Provider] - [facility] [Provider Group] Forms: [employer] Info Instructions
== END 2023-06-24 12:40 | disposition home or self-care (01) | DRG 560 ==
LOC: OB OUT 06-23 08:43
PROVIDERS: Admitting Provider Advanced Practice Midwife; Visit Provider Advanced Practice Midwife
DX: O77.0 Labor and delivery complicated by meconium in amniotic fluid (principal); O13.5 Gestational [pregnancy-induced] hypertension without significant proteinuria, complicating the puerperium; O70.1 Second degree perineal laceration during delivery; Z3A.40 40 weeks gestation of pregnancy; Z37.0 Single live birth
CPT/HCPCS: 1967; 36415; 82565; 83735; 84450; 84460; 84520; 85025; 85027; 86850; 86900; 86901; 88307; 99213; A9270; J2371; J2795; J3010; J3475; J7120

== ENCOUNTER 2023-06-26 14:49 | Outpatient (CLI) | payer BC, SELFPAY ==
--- NOTE | 2023-06-26 17:00 | W.PM.LAC.MC ---
Consult Note - Mom Date of Visit Date of visit: 06/26/23 cleaning validation consultant: Anjali Art Visit Code: Visit Patient's Information Phone number: [phone] : 2 Para: 2 Allergies No Known Drug Allergies Allergy (Verified 06/22/23 02:21) Mother's Medical History: Medical History GHTN Delivery Information Delivery type: Vaginal Weeks Gestation: 40.1 Gestational Age: AGA Weight: 3.915 kg Discharge Weight: 3.62 kg Baby's Information Baby's Age at Visit: 4 days Baby's Provider or Clinic: Dr. Oglesby Jaundice: No Reason for Consult Reason for Consult: difficulty latching Past Experience Past Experience: Yes (nursed her older daughter for about 8 months) Current Frequency of Day Feedings: about every three hours Frequency of Night Feedings: some cluster feeding Both Breasts: Yes Suck: strong Latch: wide Length of Time: about45 minutes Pumping Pumping: Yes (with her Haakaa) Quantity Pumped: up to 2 oz Supplementing EMB Supplement: Yes (randomly) Formula Supplement: No Baby Elimination Number of Wet Diapers a Day: has increased Number of BM a Day: has increased, yellow and seedy Breast/Nipple Condition Breast Information: WNL Engorgement: Yes (some) Sore Nipples: No Onsite Pre-Feed weight: 3.686 kg Post-Feed weight: 3.726 kg Milk Transferred (mL): 40 Assessments/Interventions Assessments/Interventions: Met with mom and this now 4 day old ex- term AGA baby for consult. Mom reports has been difficult almost from and baby seems to be really frustrated. She states he will have the nipple in his mouth but it's like he doesn't know it's there, he shakes his head searching for it. She started using a nipple shield in the hospital and she states he even struggles with that. She reports she or dad often have to start a nursing session by having baby suck on a finger or his pacifier or they'll even give him a few swallows of EBM, then pull the finger/artificial nipple and switch him to mom. She does report on rare occasions he latches without any prompting and has even latched and nursed without the nipple shield once. Baby is nursing about every three hours on both sides and sessions last about 45 minutes. Mom really hasn't given a bottle more than to calm him before latching, but does report once he took 45 ml b/c she just couldn't get him to nurse. She's mainly using her Haakaa to collect from the side she isn't nursing on and will get about 1 oz total/side. Breasts WNL- symmetrical with rounded lower quadrants, intramammary distance is < 1.5 inches. She reports her milk began to come in on 06/25 and she's feeling some engorgement, but isn't too uncomfortable. Nipples are short but everted, no damage noted. Baby has gained 66 grams from D/C and is 6% below BW at 4 DOL. Mom denies any caput or cephalohematoma and reports baby seems to have equal ROM when turning his head or moving his extremities. His palate is slightly elevated. His upper lip is difficult to flange and the gums amna a little. He has a strong suck on a finger but the tongue doesn't consistently extend past the gum line. The tongue has good lateral movement to the left with some canoeing to the right. The lower frenulum looks like it could be posterior. Mom attempted to latch baby with the 24 mm nipple shield on the left and baby really struggled. She had good support of her breast as well as with baby but he didn't seem to sense the breast was in his mouth or he'd make an attempt with a few suckles and then start crying. Using a syringe with EBM to entice him, he finally latch and nursed for about 10 minutes needing some stimulation to stay awake. When he came off, mom offered the right side without the shield without success. As she'd used a 20 mm flange with her older child, we tried that but also without success. Baby had a much harder time latching on this side but eventually with some coaxing from a bottle and switching back to the 24 mm flange, baby latched and nursed another 10 minutes transferring 40 ml (some of that transfer was from the bottle, but not much as he only had about 10 sucks before mom switched him to the breast). Plan: 1. Encouraged mom to nurse baby ALD, offering both sides and for now to use the 24 mm nipple shield. OK to entice or start him with a finger, pacifier, bottle as they have been if needed. Also gave mom some syringes to take home. Instructed her that baby should have 8 - 12 nursing sessions in 24 hours. 2. No medical need to supplement, but if a nursing session gets too stressful, ok to give baby a bottle. We reviewed paced feeding. 3. Suggested mom pump or use her Haakaa to comfort as she has been if needed. 4. Showed mom an exercise to hopefully help baby learn to extend his tongue more consistently past the gumline and asked her or dad to practice this 3 - 5 times/day. 5. Baby had NB visit earlier today. Will f/u with mom by phone on 06/30, could refer her for bodywork or to a pediatric dentist if no improvement. Meds Home Medications and Allergies Home Medications Medication Instructions Recorded Confirmed Type prenat.vits,mikayla,mfm-plbq-zcabt 1 tab PO QDAY 11/10/22 06/22/23 History cholecalciferol (vitamin D3) 50 50 mcg PO QDAY 01/04/23 06/22/23 History mcg (2,000 unit) capsule calcium carbonate 600 mg calcium 600 mg PO QDAY 03/02/23 06/22/23 History (1,500 mg) tablet (Calcium) magnesium 250 mg tablet 250 mg PO QDAY 06/08/23 06/22/23 History Allergies Allergy/AdvReac Type Severity Reaction Status Date / Time No Known Drug Allergies Allergy Verified 06/22/23 02:21
== END 2023-06-26 14:50 | disposition home or self-care (01) ==
LOC: OB LAC 14:51
PROVIDERS: Visit Provider Advanced Practice Midwife
DX: Z39.1 Encounter for care and examination of lactating mother (principal)
CPT/HCPCS: 99211

== ENCOUNTER 2023-08-01 14:56 | Outpatient (CLI) | payer BC, SELFPAY | END 2023-08-01 14:57 | disposition home or self-care (01) | LOC: NFLDREF 08-02 10:37 | PROVIDERS: Visit Provider Advanced Practice Midwife | DX: Z39.2 Encounter for routine postpartum follow-up (principal); Z30.9 Encounter for contraceptive management, unspecified | CPT/HCPCS: 84443 ==